=== PATIENT | female | born 1930 | race Caucasian/White ===

== ENCOUNTER 2017-04-19 14:12 | Emergency (ER) | payer MEDICARE, OTHER ==
[~2017-04-19] VITALS: Ht 157.5 cm; Wt 96.6 kg
[~2017-04-19 14:12] MED LIST: ACET325 PO; ALEN10 PO; ALEN70 PO; ASPI81EC PO; CALCAVITDA PO; DOCU100 PO; ENOX40I SQ; HYDACE5 PO; HYDCHL25 PO; LISI20 PO; LOSA50 PO; METF500 PO; METF500C PO; METO50ER PO; METTREX2.5 PO; NITR100CA PO; OMEP20ER PO; PRAV20 PO; PRED10 PO; SERT50 PO; SPIR50 PO; TRAM50 PO
[2017-04-19] MEDS ORDERED: ASPI81CH PO (14:28)
[2017-04-19] MEDS ORDERED: CALC.25 PO (14:29)
[2017-04-19] MEDS ORDERED: CETI5 PO (14:29)
[2017-04-19] MEDS ORDERED: FURO40 PO (14:30)
[2017-04-19] MEDS ORDERED: FISH OIL 1,2001 EACH PO (14:30)
[2017-04-19] MEDS ORDERED: LOSA25 PO (14:31)
[2017-04-19] MEDS ORDERED: Ipratropium Bro30 ML (14:31)
[2017-04-19] MEDS ORDERED: Omeprazole20 M1 (14:31)
[2017-04-19] MEDS ORDERED: METO25ER PO (14:31)
[2017-04-19] MEDS ORDERED: POTCHL10ER (14:32)
[2017-04-19] MEDS ORDERED: SENN187 PO (14:32)
[2017-04-19] MEDS ORDERED: CHOL10002 (14:33)
[2017-04-19] MEDS ORDERED: CYAN500 PO (14:33)
[2017-04-19] MEDS ORDERED: [UNRECOGNIZED DRUG - OTHER] (14:33)
[2017-04-19 15:44] LABS: Influenza A Positive (NEGATIVE); Influenza B Negative (NEGATIVE)
[2017-04-19] MEDS ORDERED: Mucinex600 MG PO (15:57)
[2017-04-19] MEDS ORDERED: ROBITUSSIN COU1 EACH PO (15:57)
[2017-04-19] MEDS ORDERED: OSEL75CA PO (15:57)
[2017-04-20] MEDS ORDERED: SPACE CHAMBER1 EACH XX (11:18)
[2017-04-20] MEDS ORDERED: ALBU90OI INH (11:18)
== END 2017-04-19 17:00 | disposition home or self-care (01) ==
LOC: ER 14:12
PROVIDERS: Physician Assistant
DX: J10.1 Influenza due to other identified influenza virus with other respiratory manifestations (principal); Z88.8 Allergy status to other drugs, medicaments and biological substances; Z79.899 Other long term (current) drug therapy; Z79.82 Long term (current) use of aspirin; I10 Essential (primary) hypertension
CPT/HCPCS: 71046; 82330; 84100; 87804; 94640; 99284

== ENCOUNTER 2017-04-20 09:14 | Emergency (ER) | payer MEDICARE, OTHER ==
[~2017-04-20] VITALS: Ht 157.5 cm; Wt 96.6 kg
[~2017-04-20 09:14] MED LIST changes: +ASPI81CH PO; +CALC.25 PO; +CETI5 PO; +CHOL10002; +CYAN500 PO; +FISH OIL 1,2001 EACH PO; +FURO40 PO; +Ipratropium Bro30 ML; +LOSA25 PO; +METO25ER PO; +Mucinex600 MG PO; +OSEL75CA PO; +Omeprazole20 M1; +POTCHL10ER; +ROBITUSSIN COU1 EACH PO; +SENN187 PO; +[UNRECOGNIZED DRUG - OTHER]
[2017-04-20 10:38] LABS: BASOPHILS ABSOLUTE AUTO 0.03 K/mm3 (0.00-0.23); BASOPHILS PERCENT AUTO 1 % (0-2); EOSINOPHILS ABSOLUTE AUTO 0.18 K/mm3 (0.00-0.68); EOSINOPHILS PERCENT AUTO 3 % (0-6); Hemoglobin 9.8 g/dL (11.5-16.0); IMMATURE GRAN ABSOLUTE AUTO 0.03 K/mm3 (0.00-0.10); IMMATURE GRAN PERCENT AUTO 1 % (0-1); LYMPHOCYTES ABSOLUTE AUTO 1.26 K/mm3 (0.84-5.20); LYMPHOCYTES PERCENT AUTO 19 % (21-46); MONOCYTES ABSOLUTE AUTO 0.71 K/mm3 (0.16-1.47); MONOCYTES PERCENT AUTO 11 % (4-13); Mean Corpuscular HGB 32.7 pg (26.0-34.0); Mean Corpuscular HGB Conc 30.6 g/dL (31.5-36.5); Mean Platelet Volume 11.5 fL (9.1-12.4); NEUTROPHILS ABSOLUTE AUTO 4.33 K/mm3 (1.96-9.15); NEUTROPHILS PERCENT AUTO 66 % (41-73); Platelet Count 167 K/mm3 (150-400); RDW Coefficient Variation 13.9 % (11.7-14.2); RDW Standard Deviation 54.5 fL (35.1-46.3); White Blood Cell Count 6.54 K/mm3 (4.00-11.30)
[2017-04-20 10:42] LABS: Mean Corpuscular Volume 107 fL (80-100)
[2017-04-20 11:00] LABS: Albumin, Blood 3.1 g/dL (3.4-5.0); Albumin/Globulin Ratio 0.9 (0.8-1.8); Bilirubin, Total 0.4 mg/dL (0.1-1.0); Bun/Creatinine Ratio 20.1 (12.0-20.0); Calcium, Blood 8.7 mg/dL (8.5-10.1); Creatinine, Blood 1.84 mg/dL (0.40-1.00); Globulin, Blood 3.6 g/dL (2.2-4.0); Potassium, Blood 4.5 mmol/L (3.5-5.5); Total Protein, Blood 6.7 g/dL (6.4-8.2); Troponin I 0.017 ng/mL (0.000-0.040)
[2017-04-20] MEDS ORDERED: SPACE CHAMBER1 EACH XX (11:18)
[2017-04-20] MEDS ORDERED: ALBU90OI INH (11:18)
== END 2017-04-20 12:15 | disposition home or self-care (01) ==
LOC: ER 09:14
PROVIDERS: Emergency Medicine
DX: J20.9 Acute bronchitis, unspecified (principal); J10.1 Influenza due to other identified influenza virus with other respiratory manifestations; J45.909 Unspecified asthma, uncomplicated; Z88.8 Allergy status to other drugs, medicaments and biological substances; Z79.899 Other long term (current) drug therapy; Z79.82 Long term (current) use of aspirin; I10 Essential (primary) hypertension
CPT/HCPCS: 36415; 80053; 83880; 84484; 85025; 93005; 93010; 94640; 96374; 99284; J2930

== ENCOUNTER 2017-11-29 16:12 | Emergency (ER) | payer MEDICARE, OTHER ==
[~2017-11-29] VITALS: Ht 165.1 cm; Wt 72.6 kg
[~2017-11-29 16:12] MED LIST changes: +ALBU90OI INH; +SPACE CHAMBER1 EACH XX
== END 2017-11-29 19:15 | disposition home or self-care (01) ==
LOC: ER 16:12
DX: S00.03XA Contusion of scalp, initial encounter (principal); I10 Essential (primary) hypertension; Z88.8 Allergy status to other drugs, medicaments and biological substances; Z79.899 Other long term (current) drug therapy; Z79.82 Long term (current) use of aspirin; W01.0XXA Fall on same level from slipping, tripping and stumbling without subsequent striking against object, initial encounter
CPT/HCPCS: 70450; 72125; 99284-25

== ENCOUNTER 2018-03-29 08:20 | Emergency (ER) | payer MEDICARE, OTHER ==
[~2018-03-29] VITALS: Ht 157.5 cm; Wt 93.0 kg
[2018-03-29] MEDS ORDERED: AMLO5 PO (08:41)
[2018-03-29] MEDS ORDERED: Zylet Eye Drops5 ML (08:43)
== END 2018-03-29 09:45 | disposition home or self-care (01) ==
LOC: ER 08:20
DX: H11.422 Conjunctival edema, left eye (principal); I10 Essential (primary) hypertension; Z79.899 Other long term (current) drug therapy; Z79.82 Long term (current) use of aspirin
CPT/HCPCS: 99283

== ENCOUNTER 2018-06-27 08:45 | Day surgery (SDC) | payer MEDICARE, OTHER ==
[~2018-06-27] VITALS: Ht 157.5 cm; Wt 90.3 kg
[~2018-06-27 08:45] MED LIST changes: +ACET500 PO; +AMLO5 PO; +Antacid Maximu355 ML PO; +Aspir 8181 MG PO; +B Complex #11 EACH PO; +BISM300CH PO; +FISH OIL 1,0001 EAC1 PO; +FURO20 PO; +Flovent Diskus50 MCG INH; +Lopressor 25 mg25 MG PO; +Mucinex Dm Tab1 EAC1 PO; +OMEPRAZOLE MAGN20 MG PO; +POTA10T PO; +SERT100 PO; +VITAMIN D32000 UNIT PO; +ZYRTEC10 M1 PO; +Zofran8 MG PO; +Zylet Eye Drops5 ML
== END 2018-06-27 10:48 | disposition home or self-care (01) ==
LOC: ORSCSDS 08:45
PROVIDERS: Ophthalmology
PROC: 08RJ3JZ Replacement of Right Lens with Synthetic Substitute, Percutaneous Approach (ICD-10-PCS; principal; 2018-06-27 10:00)
DX: H25.11 Age-related nuclear cataract, right eye (principal); I50.9 Heart failure, unspecified; Z99.81 Dependence on supplemental oxygen; Z86.73 Personal history of transient ischemic attack (TIA), and cerebral infarction without residual deficits; E66.01 Morbid (severe) obesity due to excess calories; Z68.36 Body mass index [BMI] 36.0-36.9, adult; Z79.899 Other long term (current) drug therapy; Z79.82 Long term (current) use of aspirin
CPT/HCPCS: J2001; J2250; J3301; J7120; V2632